=== PATIENT | female | born 1970 | race Caucasian/White ===

== ENCOUNTER 2018-03-01 17:29 | Emergency (ER) | payer MEDICAID ==
[~2018-03-01] VITALS: Ht 152.4 cm; Wt 69.9 kg
[2018-03-01 17:34] VITALS: BP_SYST 142
[2018-03-01] MEDS ORDERED: MECLIZINE HCL 25 MG TABLET (ANITVERT) PO ONE (18:45)
[2018-03-01] MEDS ORDERED: KETOROLAC TROMETHAMINE 60 MG/2 ML VIAL IM ONE (18:45)
[2018-03-01] MEDS ORDERED: ONDANSETRON HCL 4 MG/2 ML VIAL IM ONE (18:45)
[2018-03-01 19:55] VITALS: BP_SYST 133
== END 2018-03-01 19:55 | disposition home or self-care (01) ==
LOC: SED 17:29
DX: M54.40 Lumbago with sciatica, unspecified side (principal); R42 Dizziness and giddiness; I10 Essential (primary) hypertension
CPT/HCPCS: 70450; 96372; 99284; J1885; J2405; J8597

== ENCOUNTER 2018-09-07 15:22 | Emergency (ER) | payer MEDICAID ==
[~2018-09-07] VITALS: Ht 157.5 cm; Wt 64.4 kg
[2018-09-07 15:38] VITALS: BP_SYST 131
[2018-09-07] MEDS ORDERED: NOR10 PO (15:44)
[2018-09-07] MEDS ORDERED: METO-442 PO (15:44)
[2018-09-07] MEDS ORDERED: LISI40TA4 PO (15:44)
[2018-09-07] MEDS ORDERED: SIMV10TA2 PO (15:44)
[2018-09-07 16:00] LABS: BILIRUBIN,URINE NEGATIVE (NEGATIVE); BLOOD, URINE NEGATIVE (NEGATIVE); CLARITY/URINE CLEAR (CLEAR); GLUCOSE,URINE NEGATIVE (NEGATIVE); KETONES,URINE NEGATIVE (NEGATIVE); LEUKOCYTE ESTERASE ,URINE NEGATIVE (NEGATIVE); NITRITE, URINE NEGATIVE (NEGATIVE); PH,URINE 6.5 (5.0-8.0); PROTEIN URINE NEGATIVE (NEGATIVE); UROBILINOGEN,URINE 0.2 (0.2-1.0)
[2018-09-07] MEDS ORDERED: IBUPROFEN 600 MG TABLET PO ONE (16:00)
[2018-09-07] MEDS ORDERED: ONDANSETRON 4 MG ODT TAB PO ONE (16:00)
[2018-09-07 16:08] LABS: COLOR,URINE STRAW (YELLOW)
[2018-09-07 16:12] LABS: BASOPHILS # (AUTO) 0.1 K/uL (0.0-0.2); BASOPHILS % (AUTO) 0.9 % (0.0-2.0); EOSINOPHILS # (AUTO) 0.3 K/uL (0.0-0.4); EOSINOPHILS % (AUTO) 3.1 % (0.0-4.0); HEMATOCRIT 37.3 % (36-48); HEMOGLOBIN 12.5 g/dL (12.0-16.0); LYMPHOCYTES # (AUTO) 2.9 K/uL (1.0-5.5); LYMPHOCYTES % (AUTO) 31.5 % (20.5-51.5); MEAN CORPUSCULAR HEMOGLOBIN 29 pg (27-31); MEAN CORPUSCULAR HGB CONC 34 % (32-36); MEAN CORPUSCULAR VOLUME 87 fL (79.0-98.0); MONOCYTES # (AUTO) 0.7 K/uL (0.0-1.0); MONOCYTES % (AUTO) 7.6 % (1.7-9.3); NEUTROPHILS # (AUTO) 5.2 K/uL (1.8-7.7); NEUTROPHILS % (AUTO) 56.9 % (40.0-70.0); PLATELET COUNT (AUTO) 284 K/uL (130-430); RED BLOOD CELL COUNT(AUTO) 4.27 MIL/uL (4.2-6.2); RED CELL DISTRIBUTION WIDTH 14.1 % (9.0-15.0); WHITE BLOOD COUNT (AUTO) 9.1 K/uL (4.8-10.8)
[2018-09-07 16:32] LABS: ANION GAP 9 (5-15); CALCIUM 8.8 mg/dL (8.4-11.0); CHLORIDE 105 mmol/L (98-107); CREATININE 0.82 mg/dL (0.55-1.30); GLUCOSE 96 mg/dL (70-99); POTASSIUM 3.6 mmol/L (3.5-5.1); SODIUM SERUM 141 mmol/L (136-145); UREA NITROGEN, BLOOD 9 mg/dL (8-21)
[2018-09-07 16:41] LABS: ALANINE AMINOTRANSFERASE 32 U/L (12-78); ALBUMIN 3.5 g/dL (3.4-4.8); ASPARTATE AMINOTRANSFERASE 17 U/L (10-37); TOTAL BILIRUBIN 0.3 mg/dL (0.0-1.0)
[2018-09-07 16:42] LABS: GFR AFRICAN AMERICAN 96 mL/min (>90)
[2018-09-07] MEDS ORDERED: MECLIZINE HCL 25 MG TABLET (ANITVERT) PO ONE (17:30)
[2018-09-07] MEDS ORDERED: NACL 0.9% 1,000 ML IV ONE (17:30)
[2018-09-07 18:43] VITALS: BP_SYST 138
== END 2018-09-07 18:43 | disposition home or self-care (01) ==
LOC: SED 15:22
DX: R42 Dizziness and giddiness (principal); R51 Headache; I10 Essential (primary) hypertension; Z79.899 Other long term (current) drug therapy
CPT/HCPCS: 36415; 80053; 81003; 84484; 85025; 93005; 96360; 99284; J7030; J8597; Q0162

== ENCOUNTER 2019-02-07 22:19 | Emergency (ER) | payer MEDICAID ==
[~2019-02-07] VITALS: Ht 152.4 cm; Wt 69.4 kg
[~2019-02-07 22:19] MED LIST: LISI40TA4 PO; METO-442 PO; NOR10 PO; SIMV10TA2 PO
[2019-02-07 22:42] VITALS: BP_SYST 157
--- NOTE | 2019-02-08 01:50 | NUR ---
Patient left without being seen. No further treatment provided. ER MD aware
--- NOTE | 2019-02-08 01:50 | NUR ---
Called in x 3, no answer
== END 2019-02-08 01:50 | disposition left against medical advice (07) ==
LOC: SED 22:19
DX: I10 Essential (primary) hypertension (principal); Z53.21 Procedure and treatment not carried out due to patient leaving prior to being seen by health care provider
CPT/HCPCS: 71046-TC

== ENCOUNTER 2019-10-08 20:40 | Emergency (ER) | payer MEDICAID ==
[~2019-10-08] VITALS: Ht 152.4 cm; Wt 73.5 kg
[2019-10-08 21:21] VITALS: BP_SYST 206
--- NOTE | 2019-10-08 21:21 | NUR ---
PT TRIAGED, WAITING IN ER LOBBY FOR AVAILABLE BED.
--- NOTE | 2019-10-08 21:45 | NUR ---
BLOOD PRESSURE RE-CHECK 164/98. PT AWAITING ER BED, NO BED AVAILABLE AT THIS TIME.
--- NOTE | 2019-10-08 22:55 | NUR ---
Patient to ER bed 4 to gown for evaluation. Side rails up.
--- NOTE | 2019-10-08 22:57 | NUR ---
Patient came to ER. C/O Hypertension x 1 week. Per reported, patient had hypertension over a week with headache, Patient took metoprolol 50 mg , Lisinopril and Doxazosin 1 mg today this morning. Hx HTN. Patient is yak[place] speaking.
[2019-10-08 23:39] LABS: BILIRUBIN,URINE NEGATIVE (NEGATIVE); BLOOD, URINE 1+ (NEGATIVE); CLARITY/URINE CLEAR (CLEAR); COLOR,URINE YELLOW (YELLOW); GLUCOSE,URINE NEGATIVE (NEGATIVE); KETONES,URINE NEGATIVE (NEGATIVE); LEUKOCYTE ESTERASE ,URINE NEGATIVE (NEGATIVE); NITRITE, URINE NEGATIVE (NEGATIVE); PROTEIN URINE NEGATIVE (NEGATIVE); UROBILINOGEN,URINE 0.2 (0.2-1.0)
--- NOTE | 2019-10-09 00:01 | NUR ---
BP 210/73 , Dr. Enamorado notified.
[2019-10-09 00:05] LABS: BACTERIA,URINE FEW /HPF (None Seen); WBC,URINE 0-3 /HPF (0-3)
[2019-10-09] MEDS ORDERED: METO-442 PO (00:06)
[2019-10-09] MEDS ORDERED: DOXA2TAB PO (00:06)
[2019-10-09] MEDS ORDERED: LISI40TA4 PO (00:06)
[2019-10-09 00:08] LABS: BASOPHILS # (AUTO) 0.1 K/uL (0.0-0.2); BASOPHILS % (AUTO) 0.8 % (0.0-2.0); EOSINOPHILS # (AUTO) 0.3 K/uL (0.0-0.4); EOSINOPHILS % (AUTO) 2.9 % (0.0-4.0); HEMATOCRIT 38.7 % (36-48); HEMOGLOBIN 12.6 g/dL (12.0-16.0); LYMPHOCYTES # (AUTO) 2.4 K/uL (1.0-5.5); LYMPHOCYTES % (AUTO) 28.7 % (20.5-51.5); MEAN CORPUSCULAR HEMOGLOBIN 29 pg (27-31); MEAN CORPUSCULAR HGB CONC 33 % (32-36); MEAN CORPUSCULAR VOLUME 88 fL (79.0-98.0); MONOCYTES # (AUTO) 0.6 K/uL (0.0-1.0); MONOCYTES % (AUTO) 6.7 % (1.7-9.3); NEUTROPHILS # (AUTO) 5.2 K/uL (1.8-7.7); NEUTROPHILS % (AUTO) 60.9 % (40.0-70.0); PLATELET COUNT (AUTO) 274 K/uL (130-430); RED BLOOD CELL COUNT(AUTO) 4.42 MIL/uL (4.2-6.2); RED CELL DISTRIBUTION WIDTH 14.9 % (9.0-15.0); WHITE BLOOD COUNT (AUTO) 8.5 K/uL (4.8-10.8)
--- NOTE | 2019-10-09 00:22 | NUR ---
ER Dr. Enamorado at bedside examining patient.
[2019-10-09] MEDS ORDERED: DIPHENHYDRAMINE INJ 50 MG/ML VIAL IVP ONE (00:30)
[2019-10-09] MEDS ORDERED: NACL 0.9% 1,000 ML IV ONE (00:30)
[2019-10-09] MEDS ORDERED: KETOROLAC TROMETHAMINE 30 MG VIAL IVP ONE (00:30)
[2019-10-09] MEDS ORDERED: METOCLOPRAMIDE HCL 10 MG/2 ML VIAL IVP ONE (00:30)
[2019-10-09 00:56] LABS: ALBUMIN 3.5 g/dL (3.4-4.8); CREATININE 0.79 mg/dL (0.55-1.30); POTASSIUM 3.6 mmol/L (3.5-5.1); TOTAL BILIRUBIN 0.2 mg/dL (0.0-1.0)
--- NOTE | 2019-10-09 01:32 | NUR ---
Patient came back from CT scan.
--- NOTE | 2019-10-09 02:22 | NUR ---
Patient given written and verbal discharge instructions and verbalizes understanding. ER MD discussed with patient the results and treatment provided. Patient in stable condition. ID arm band removed. IV catheter removed intact and dressing applied, no active bleeding. No Rx given. Patient educated on pain management and to follow up with PMD. Pain Scale 1/10. Opportunity for questions provided and answered. Medication side effect fact sheet provided.
[2019-10-09 02:24] VITALS: BP_SYST 179
== END 2019-10-09 02:22 | disposition home or self-care (01) ==
LOC: SED 20:40
DX: R51 Headache (principal); I10 Essential (primary) hypertension; R11.10 Vomiting, unspecified; Z79.899 Other long term (current) drug therapy
CPT/HCPCS: 36415; 70450; 80053; 81000; 84702; 85025; 93005; 96361; 96374; 96375; 99285; J1200; J1885; J2765; J7030

== ENCOUNTER 2020-12-15 15:23 | Emergency (ER) | payer MEDICAID ==
[~2020-12-15] VITALS: Ht 162.6 cm; Wt 78.0 kg
[~2020-12-15 15:23] MED LIST changes: +DOXA2TAB PO; +LISI40TA13 PO; -LISI40TA4 PO
[2020-12-15 15:25] VITALS: BP_SYST 157
[2020-12-15] MEDS ORDERED: HYDR-3917 PO ×2 (16:46→17:28)
[2020-12-15] MEDS ORDERED: IBUP-1971 PO ×2 (16:46→17:28)
[2020-12-15] MEDS ORDERED: ACYC-133 PO ×2 (16:46→17:28)
[2020-12-15] MEDS ORDERED: PRED20TA PO ×2 (16:46→17:28)
[2020-12-15 16:53] VITALS: BP_SYST 149
== END 2020-12-15 16:53 | disposition home or self-care (01) ==
LOC: SED 15:23
DX: B02.9 Zoster without complications (principal); I10 Essential (primary) hypertension; Z79.899 Other long term (current) drug therapy
CPT/HCPCS: 99283

== ENCOUNTER 2023-04-09 18:08 | Emergency (ER) | payer MEDICAID, OTHER ==
[~2023-04-09] VITALS: Ht 154.9 cm; Wt 78.0 kg
[~2023-04-09 18:08] MED LIST changes: +ACYC-133 PO; +DOXA-7 PO; -DOXA2TAB PO; +HYDR-3917 PO; +IBUP-1971 PO; +PRED20TA PO; +SIMV-341 PO; -SIMV10TA2 PO
[2023-04-09 19:15] VITALS: BP_SYST 230; PULSE 56; RESP 16; TEMP 97.8; O2SAT 95
[2023-04-09] MEDS: cloNIDine HCL 0.1 MG TABLET PO ONE (20:26)
[2023-04-09] MEDS: KETOROLAC TROMETHAMINE 60 MG/2 ML VIAL IM ONE (20:27)
[2023-04-09] MEDS ORDERED: DICL50TA9 PO (22:13)
[2023-04-09] MEDS ORDERED: DICL20GE TP (22:13)
[2023-04-09 22:20] VITALS: BP_SYST 134; PULSE 51; RESP 16; TEMP 97.4; O2SAT 95
== END 2023-04-09 22:20 | disposition home or self-care (01) ==
LOC: SED 18:08
DX: M54.42 Lumbago with sciatica, left side (principal); I10 Essential (primary) hypertension; Z79.899 Other long term (current) drug therapy
CPT/HCPCS: 99283; 93005; 96372; J1885